=== PATIENT | female | born 1990 | race Caucasian/White ===

== ENCOUNTER 2021-06-19 22:20 | Emergency (ER) | payer SELFPAY ==
[2021-06-19 22:42] VITALS: BP 162/122; PULSE 126; RESP 16; TEMP 37.4; O2SAT 97
[2021-06-19 23:45] LABS: Basophils % 0.4 %; Eosinophils # 0.1 10^3/uL (0.0-0.8); Eosinophils % 0.5 %; Hematocrit 43.7 % (37.0-47.0); Hemoglobin 14.8 g/dL (11.5-15.3); Lymphocytes # 2.9 10^3/uL (0.8-4.8); Lymphocytes % 27.8 %; Mean Corpuscular HGB Conc 33.9 g/dL (30.0-36.0); Mean Corpuscular Hemoglobin 29.1 pg (28.0-34.0); Mean Platelet Volume 10.4 fL (7.4-10.4); Monocytes # 0.8 10^3/uL (0.2-0.9); Monocytes % 7.9 %; Neutrophils # 6.62 10^3/uL (1.8-7.7); Neutrophils % 63.1 %; Nucleated Red Blood Cells % 0 %; Platelet Count 391 10^3/cmm (130-400); Red Blood Count 5.08 10^6/uL (4.1-5.3); Red Cell Distribution Width 11.8 % (12.1-15.1); White Blood Count 10.5 10^3/uL (4.0-10.0)
[2021-06-19 23:55] LABS: HCG, Serum Qual Negative (Negative)
[2021-06-20 00:10] LABS: Procalcitonin 0.02 ng/mL (0-0.5)
[2021-06-20 00:22] LABS: Alanine Aminotransferase 23 U/L (0-33); Albumin Level 4.5 g/dL (3.5-5.2); Alkaline Phosphatase 82 IU/L (35-105); Anion Gap 22.7 (5-19); Aspartate Amino Transferase 18 U/L (0-32); Blood Urea Nitrogen 5 mg/dL (6-20); C Reactive Protein 0.8 mg/L (0.0-4.9); Carbon Dioxide 19 mmol/L (22-29); Chloride 98 mmol/L (98-107); Globulin 3.2 g/dL (1.3-4.6); Glomerular Filtration Rate 83.1 mL/min (90-130); Glucose 112 mg/dL (65-115); Lipase 23 U/L (13-60); Osmolality Calculated 280 mOsm/kg (285-295); Potassium 3.7 mmol/L (3.5-5.1); Sodium 136 mmol/L (136-145); Total Bilirubin 0.4 mg/dL (0.15-1.2); Total Protein 7.7 g/dL (6.6-8.7)
[2021-06-20 00:31] VITALS: BP 190/100; PULSE 100; RESP 18; TEMP 36.8; O2SAT 99
[2021-06-20 00:33] VITALS: O2SAT 99
--- NOTE | 2021-06-20 00:33 | PC.NURSE ---
patient reports increased BP and heart rate, states when heart rate is elevated her chest feels tight. reports history of irritable bowel and has not been taking her medications for reflux and has increased nausea with out emesis. states currently on LMP. states home COVID test negative today but was positive 2 weeks ago. speech clear, sentences complete. tele in place.
--- NOTE | 2021-06-20 00:41 | W.ED.COVID ---
HPI - COVID General: Chief Complaint: COVID symptoms Stated Complaint: covid+, weekness, High B/P Time Seen by Provider: 06/20/21 00:28 Triage information: No fever, cough or shortness of breath. Exposure to COVID + person last 14 days History of Present Illness: Patient is a 31-year-old female who comes to the ED with weakness, nausea and diarrhea. Patient says that approximately 2 weeks ago she started having symptoms of a cold with some nasal congestion and cough. Her main symptom during that time though was diarrhea. She had close to 6-8 episodes of diarrhea daily for the past 2 weeks. She has been trying to stay hydrated drinking water and other fluids but has been nauseous as well. She has not had any episodes of emesis. Today she felt weak and she checked her blood pressure at home and it was elevated. She says her mouth feels dry and she feels like she is dehydrated. She also has some acid reflux because she did not take her omeprazole for a couple. Patient does endorse having a mild headache for the past several days. Patient says she did an at-home Covid test approximately 10 days ago when it was positive. Denies any fever, shortness of breath, weakness or numbness to 1 side of her body, dysuria, hematuria, abdominal pain, emesis. COVID 19 common symptoms: positive non-productive cough, fatigue, headache(s) (mild headache for the past several days), nasal congestion, nausea and diarrhea; negative fever(s), chills, productive cough, dyspnea, throat pain or vomiting COVID 19 other sytmptoms: negative chest pain COVID Results: SARS-CoV-2 Antigen (Rapid) Negative (Negative) 06/20/21 01:25 06/20/21 Review of Systems Const: Reports: fatigue; Denies: fever(s) or chills Eyes: Denies: change in vision or eye discomfort ENMT: Reports: dry mouth and nasal congestion; Denies: throat pain, odynophagia or nasal discharge Card: Denies: chest pain, palpitations, edema, swelling of feet/ankles, dyspnea on exertion or orthopnea Resp: Reports: non-productive cough; Denies: dyspnea or productive cough GI: Reports: nausea, heartburn and diarrhea; Denies: abdominal pain, vomiting, constipation or hematochezia : Denies: flank pain, dysuria or hematuria Musc: Denies: neck pain, back pain or extremity swelling Skin/Breast: Denies: rash or new lesions Neuro: Reports: headache(s) (mild headache for the past several days); Denies: numbness in extremities or weakness in extremities PFSH ED PFSH: Medical History No pertinent family history Surgical History No pertinent past surgical history Physical Exam Const: COMMON NORMALS: patient oriented x3 GENERAL APPEARANCE: cooperative and comfortable HENMT: COMMON NORMALS: normocephalic HEAD & SCALP: normocephalic MOUTH: moist mucous membranes abnormal Details: parched THROAT: posterior oropharynx normal and uvula midline Neck/C-Spine: COMMON NORMALS: supple GENERAL: Yes normal visual inspection Resp: COMMON NORMALS: normal respiratory effort, No retractions, No use of accessory muscles and clear to auscultation bilaterally AUSCULTATION: clear to auscultation bilaterally Cardio: COMMON NORMALS: regular rate, regular rhythm, S1 normal heart sound present, S2 normal heart sound present, No gallops present (Cardio), No clicks present (Cardio), No murmurs present (Cardio) and Peripheral pulses 2+ throughout RATE: regular rate RHYTHM: regular rhythm HEART SOUNDS: S1 normal heart sound present and S2 normal heart sound present PERIPHERAL PULSES: Peripheral pulses 2+ throughout GI: COMMON NORMALS: Normal to inspection, nondistended, normoactive bowel sounds present, Soft to palpation, non-tender and no masses PALPATION: Yes Soft to palpation : COMMON NORMALS: Yes no CVA tenderness BLADDER/KIDNEY EXAM: Yes no CVA tenderness Back/Pelvis: COMMON NORMALS: no CVA tenderness Extremity: COMMON NORMALS: normal to inspection and no pedal edema Neuro: COMMON NORMALS: patient oriented x3 GAIT: Yes Normal gait present Skin: GENERAL SKIN EXAM: dry skin Course Reevaluation(s): Reevaluation #1: After patient started getting IV fluids, Zofran and GI cocktail she says her symptoms have improved. Her vitals are improving as well she had a blood pressure of 158/98 and a pulse of around 96 while I was in the room. She appeared in no acute distress or pain. Time: 03:00 Vital Signs: Vital signs: Vital Signs Temperature 98.2 F 06/20/21 06:50 Pulse Rate 102 H 06/20/21 06:50 Respiratory Rate 18 06/20/21 06:50 Blood Pressure 145/79 06/20/21 06:50 Pulse Oximetry 97 06/20/21 06:50 MDM - COVID Medical Decision Making Patient is a 31-year-old female comes to the ED with weakness, nausea and diarrhea. She states she has been having bad diarrhea for over a week and is concerned that she might be dehydrated. At triage she did have a pulse of 126 and a blood pressure of 162/122 but the rest of her vitals were stable. Exam of patient shows a 31-year-old female in no acute distress or pain. She appears nontoxic. Her oral mucous membranes appear dry. Rest of exam is benign. Labs are unremarkable. Rapid Covid test was negative. Patient was given 1 L of IV fluids, Zofran and a GI cocktail and her symptoms improved. Her vitals improved as well. Patient was diagnosed with viral syndrome and dehydration and discharged home. She has a prescription of Zofran currently at home and I told her to continue using that for nausea. She was told to follow-up with her PCP in 5-7days for reevaluation. Return to ED precautions given. Patient understood and agree with plan. Lab Data I reviewed the patient's lab results. : 06/19/21 23:21 06/19/21 23:21 Laboratory Results WBC 10.5 10^3/uL (4.0-10.0) H 06/19/21 23: RBC 5.08 10^6/uL (4.1-5.3) 06/19/21 23:21 Hgb 14.8 g/dL (11.5-15.3) 06/19/21 23: Hct 43.7 % (37.0-47.0) 06/19/21 23: MCV 86.0 fl (81-99) 06/19/21 23: MCH 29.1 pg (28.0-34.0) 06/19/21 23: MCHC 33.9 g/dL (30.0-36.0) 06/19/21 23: RDW 11.8 % (12.1-15.1) L 06/19/21 23:21 Plt Count 391 10^3/cmm (130-400) 06/19/21 23:21 MPV 10.4 fL (7.4-10.4) 06/19/21 23:21 Neut % (Auto) 63.1 % 06/19/21 23:21 Lymph % (Auto) 27.8 % 06/19/21 23:21 [place] % (Auto) 7.9 % 06/19/21 23:21 Eos % (Auto) 0.5 % 06/19/21 23:21 Baso % (Auto) 0.4 % 06/19/21 23:21 Neut # (Auto) 6.62 10^3/uL (1.8-7.7) 06/19/21 23:21 Lymph # (Auto) 2.9 10^3/uL (0.8-4.8) 06/19/21 23:21 [place] # (Auto) 0.8 10^3/uL (0.2-0.9) 06/19/21 23:21 Eos # (Auto) 0.1 10^3/uL (0.0-0.8) 06/19/21 23:21 Baso # (Auto) 0.0 10^3/uL (0.0-0.1) 06/19/21 23:21 Nucleated RBC % (auto) 0 % 06/19/21 23:21 Nucleated RBCs # 0.0 /100WBC 06/19/21 23:21 Sodium 136 mmol/L (136-145) 06/19/21 23:21 Potassium 3.7 mmol/L (3.5-5.1) 06/19/21 23:21 Chloride 98 mmol/L (98-107) 06/19/21 23:21 Carbon Dioxide 19 mmol/L (22-29) L 06/19/21 23:21 Anion Gap 22.7 (5-19) H 06/19/21 23:21 BUN 5 mg/dL (6-20) L 06/19/21 23:21 Creatinine 0.8 mg/dL (0.5-0.9) 06/19/21 23:21 GFR Calculation 83.1 mL/min (90-130) L 06/19/21 23:21 Glucose 112 mg/dL (65-115) 06/19/21 23:21 Calculated Osmolality 280 mOsm/kg (285-295) L 06/19/21 23:21 Calcium 11.0 mg/dL (8.5-10.5) H 06/19/21 23:21 Total Bilirubin 0.4 mg/dL (0.15-1.2) 06/19/21 23:21 AST 18 U/L (0-32) 06/19/21 23:21 ALT 23 U/L (0-33) 06/19/21 23:21 Alkaline Phosphatase 82 IU/L (35-105) 06/19/21 23:21 C-Reactive Protein 0.8 mg/L (0.0-4.9) 06/19/21 23:21 Total Protein 7.7 g/dL (6.6-8.7) 06/19/21 23:21 Albumin 4.5 g/dL (3.5-5.2) 06/19/21 23:21 Globulin 3.2 g/dL (1.3-4.6) 06/19/21 23:21 Lipase 23 U/L (13-60) 06/19/21 23:21 Procalcitonin 0.02 ng/mL (0-0.5) 06/19/21 23:21 HCG, Qual Negative (Negative) 06/19/21 23:21 Urine Color Yellow (Yellow) 06/20/21 00:20 Urine Appearance Clear (CLEAR) 06/20/21 00:20 Urine pH 6.5 (5-7) 06/20/21 00:20 Ur Specific [place] 1.005 (1.005-1.030) 06/20/21 00:20 Urine Protein Neg (Negative) 06/20/21 00:20 Urine Glucose (UA) Norm (Normal) 06/20/21 00:20 Urine Ketones Negative (Negative) 06/20/21 00:20 Urine Blood 3+ (Negative) H 06/20/21 00:20 Urine Nitrate Negative (Negative) 06/20/21 00:20 Urine Bilirubin Neg (Negative) 06/20/21 00:20 Urine Urobilinogen Norm mg/dL (Negative) 06/20/21 00:20 Ur Leukocyte Esterase Negative (Negative) 06/20/21 00:20 Urine RBC 10-15 /hpf (0-2) H 06/20/21 00:20 Urine WBC 0-4 /hpf (0-5) H 06/20/21 00:20 Ur Squamous Epith Cells 15-25 /hpf (0-5) H 06/20/21 00:20 Amorphous Sediment Not Reportable 06/20/21 00:20 Urine Bacteria 1+ /hpf (NONE) H 06/20/21 00:20 SARS-CoV-2 Ag (Rapid) Negative (Negative) 06/20/21 01:25 SARS-CoV-2 Antigen (Rapid) Negative (Negative) 06/20/21 01:25 06/20/21 Discharge Plan Discharge Patient Disposition: Home Clinical Impression: Viral syndrome, Dehydration determined by examination Condition: Stable Discharge Orders: Discharge ED (Routine); Ordered 06/20/21 Ordered By: Bernardo Meredith Discharge Diet: Regular Discharge Activity: Increase activity as tolerated Patient Instructions: Dehydration (ED), Viral Syndrome (ED) Activity Restrictions/Additional Instructions: Follow-up with medical provider as directed in 5 to 7 days for reevaluation. Continue taking your previously prescribed Zofran as needed for nausea. Also continue taking your previously prescribed acid reflux medication omeprazole. Make sure you drink plenty of fluids and stay hydrated. Return to the ER or your medical provider if condition worsens. Please read and understand discharge instructions. Thank you for choosing [facility] for your healthcare needs today. Please realize this is an emergency room and that we are providing you with a medical screening exam and this may not be complete and all inclusive of all the testing and or work up that you may need to determine your ailment or severity of your illness. It is very important that you follow up as instructed or that you return to the Emergency Department should you have concerns or if your condition changes or worsens in any way. 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
[2021-06-20 00:59] LABS: Add Urine Microscopic? YES; Bilirubin Urine Neg (Negative); Blood Urine 3+ (Negative); Glucose Urine UA Norm (Normal); Ketones Urine Negative (Negative); Leukocyte Esterase Urine Negative (Negative); Nitrate Urine Negative (Negative); Protein Urine Neg (Negative); Specific Gravity, Urine 1.005 (1.005-1.030); Urine Appearance Clear (CLEAR); Urine Color Yellow (Yellow); Urobilinogen Urine Norm (Negative); pH Urine 6.5 (5-7)
[2021-06-20 01:00] LABS: Add Urine Culture? No; Bacteria Urine 1+ /hpf; Squamous Epithelial Cell Urine 15-25 /hpf (0-5); WBC Urine 0-4 /hpf (0-5)
[2021-06-20] MEDS: ondansetron 2 mg/ML SDV 2 mL 4 MG IVP (01:26)
[2021-06-20] MEDS: sodium chloride 0.9% 1,000 ML 999 ML IV ×2 (01:26→05:19)
[2021-06-20] MEDS: lidocaine 2% viscous 15 ML, aluminum-mag hydrox-simethicon 30 ML, sucralfate oral liq 1 GM PO (01:26)
[2021-06-20 02:05] LABS: SARS Covid-2 Antigen Negative (Negative)
--- NOTE | 2021-06-20 04:13 | ECG_ITS ---
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
[2021-06-20 04:25] VITALS: BP 145/86; PULSE 115; RESP 18; TEMP 36.7; O2SAT 99
[2021-06-20] MEDS: LORazepam 2 mg/mL INJ 1 mL 1 MG IVP (04:26)
--- NOTE | 2021-06-20 04:32 | PC.NURSE ---
patient reports feeling jittery in her legs and noted with elevated heart rate at 140's while IVF was infusing. denies having this problem prior to this episode. medicated per order. speech clear warm blanket provided.
[2021-06-20 06:50] VITALS: BP 145/79; PULSE 102; RESP 18; TEMP 36.8; O2SAT 97
== END 2021-06-20 06:54 | disposition home or self-care (01) ==
PROVIDERS: Emergency Medicine; Emergency Provider Physician Assistant
DX: B34.9 Viral infection, unspecified (principal); E86.0 Dehydration; Z20.822 Contact with and (suspected) exposure to COVID-19
CPT/HCPCS: 80053; 81001; 83690; 84145; 84703; 85025; 86140; 87426; 93005; 96361; 96374; 96375; 99284; J2060; J2405; J7030

== ENCOUNTER 2022-12-07 12:41 | Emergency (ER) | payer SELFPAY ==
[2022-12-07 12:43] VITALS: BP 145/88; PULSE 105; RESP 18; TEMP 36.6; O2SAT 97; BMI 36.5
--- NOTE | 2022-12-07 13:12 | XR_ITS ---
WS: [id number] Exam: XR chest 1V portable [id number] Date/Time of Exam: 12/07/2022 1:13 PM Reason For Exam: dyspnea/cough No priors. Findings: The lungs are clear and fully expanded. Costophrenic angles are sharp. No infiltrates. Bronchovascula r relief appears normal. Cardiac silhouette is unremarkable. Bony elements are intact. Multiple artif acts from clothing superimposed chest. XR/XR chest 1V portable [id number] IMPRESSION: Unremarkable chest radiograph.
--- NOTE | 2022-12-07 13:15 | ED_ITS ---
HPI - Nausea/Vomiting/Diarrhea General: Chief complaint: Nausea/Vomiting/Diarrhea Stated complaint: shingles, fever, n/v/d Time Seen by Provider: 12/07/22 12:59 Source: patient Mode of arrival: ambulatory History of Present Illness: 32-year-old female presents emergency room complaining nausea and vomiting low- grade fever at home. 5 days ago she was seen by her primary care doctor and started on Valtrex she had an isolated lesion on the left lateral side of a vesicular rash suspicious for zoster. The vesicles have resolved the rash is not extended. She is a bit of a headache she has not had any neck pain. No further rash. She is not been able to eat or drink much. She generally states she hurts everywhere and is not feeling well. MD elicited complaint: nausea, vomiting and diarrhea Onset (ago): day(s) Associated nausea: Yes Associated abdominal pain: No Exacerbating factors: none Relieving factors: none Associated symtoms: Reports nausea; Denies altered mental status, anxiety, bloating, change in vision, chest pain, cough, diaphoresis, decreased urine output, dizziness, dysuria, epistaxis, fatigue, fecal incontinence, fevers/chills, headache(s), anorexia, malaise, myalgias, numbness, palpitations, rash, short of breath, syncope, tenesmus, tinnitus or weakness Review of Systems Const: Reports: fever(s); Denies: fatigue, malaise or diaphoresis Eyes: Denies: change in vision ENMT: Denies: throat pain, tinnitus or epistaxis Card: Denies: chest pain, palpitations or syncope Resp: Denies: dyspnea, productive cough or non-productive cough GI: Reports: nausea and vomiting; Denies: abdominal pain, diarrhea, bloating or fecal incontinence : Denies: dysuria, urinary frequency or urinary urgency Skin/Breast: Denies: rash or pruritus Neuro: Denies: headache(s) or dizziness Psych: Denies: anxiety PFSH ED PFSH: Medical History No pertinent family history Surgical History No pertinent past surgical history Physical Exam Const: EXAM LIMITATIONS: no altered mental status GENERAL APPEARANCE: cooperative and comfortable ORIENTATION/CONSCIOUSNESS: Yes awake, Yes o riented to person, Yes oriented to place and Yes oriented to time HENMT: COMMON NORMALS: normocephalic, atraumatic, hearing grossly normal bilaterally, external ears normal, EAC's normal, TM's normal bilaterally and Normal nasal mucous membranes and turbinates present HEAD & SCALP: normocephalic and atraumatic NOSE: Normal nasal mucous membranes and turbinates present EXTERNAL EAR: Yes external ears normal EXTERNAL AUDITORY CANAL: EAC's normal TYMPANIC MEMBRANE: TM's normal bilaterally Eye: COMMON NORMALS: Equal, round and reactive pupils present, EOMs intact bilaterally, conjunctivae normal and no scleral icterus CONJUNCTIVA: Yes conjunctivae normal PUPIL: Yes Equal, round and reactive pupils present Neck/C-Spine: COMMON NORMALS: full ROM, no lymphadenopathy, supple and no JVD Lymph: LYMPHATIC: no lymphadenopathy noted and no lymphedema noted Resp: COMMON NORMALS: normal respiratory effort, No retractions, No use of accessory muscles and clear to auscultation bilaterally AUSCULTATION: clear to auscultation bilaterally Cardio: COMMON NORMALS: no JVD, regular rate, regular rhythm and No murmurs present (Cardio) RATE: regular rate RHYTHM: regular rhythm GI: COMMON NORMALS: Soft to palpation and No hepatosplenomegaly present AUSCULTATION: Yes normoactive bowel sounds PALPATION: Yes Soft to palpation, No Tenderness to palpation present (GI), No Guarding due to palpation present ( GI) and Yes No hepatosplenomegaly present Extremity: COMMON NORMALS: normal to inspection, capillary refill normal, no clubbing, cyanosis or edema, no calf tenderness and no pedal edema Neuro: SENSORIUM/ORIENTATION: Yes oriented to person, Yes oriented to place and Yes oriented to time Skin: OTHER: Solitary patch on the left lateral thigh of a healing rash no vesicles at this time. Is mildly reddened no surrounding erythema no induration no drainage Course Vital Signs: Vital signs: Vital Signs Temperature 97.8 F 12/07/22 12:43 Pulse Rate 96 12/07/22 14:38 Respiratory Rate 18 12/07/22 14:38 Blood Pressure 146/87 12/07/22 14:38 Pulse Oximetry 96 12/07/22 14:38 Oxygen Delivery Me thod Room Air 12/07/22 14:38 MDM - Nausea/Vomiting/Diarrhea Medical Decision Making No meningeal signs on exam. Patient improved with fluids. Will discharge home with promethazine use. Clear liquid diet advance as tolerated. She is also complaining of symptoms of a vaginal yeast infection give her single dose of Diflucan. Follow-up with your primary care doctor continue the antiviral she was previously prescribed. Medical Records I reviewed the patient's medical records. Lab Data I reviewed the patient's lab results. 12/07/22 13:10 12/07/22 13:10 Radiology Impressions Chest X-Ray 12/07/22 13:12 IMPRESSION: Unremarkable chest radiograph. Laboratory Results WBC 7.0 10^3/uL (4.0-10.0) 12/07/22 13:10 RBC 5.19 10^6/uL (4.1-5.3) 12/07/22 13:10 Hgb 15.3 g/dL (11.5-15.3) 12/07/22 13:10 Hct 44.8 % (37.0-47.0) 12/07/22 13:10 MCV 86.3 fl (81-99) 12/07/22 13:10 MCH 29.5 pg (28.0-34.0) 12/07/22 13:10 MCHC 34.2 g/dL (30.0-36.0) 12/07/22 13:10 RDW 12.4 % (12.1-15.1) 12/07/22 13:10 Plt Count 252 10^3/cmm (130-400) 12/07/22 13:10 MPV 9.5 fL (7.4-10.4) 12/07/22 13:10 Neut % (Auto) 67.3 % 12/07/22 13:10 Lymph % (Auto) 20.4 % 12/07/22 13:10 [place] % (Auto) 11.9 % 12/07/22 13:10 Eos % (Auto) 0.0 % 12/07/22 13:10 Baso % (Auto) 0.3 % 12/07/22 13:10 Neut # (Auto) 4.67 10^3/uL (1.8-7.7) 12/07/22 13:10 Lymph # (Auto) 1.4 10^3/uL (0.8-4.8) 12/07/22 13:10 [place] # (Auto) 0.8 10^3/uL (0.2-0.9) 12/07/22 13:10 Eos # (Auto) 0.0 10^3/uL (0.0-0.8) 12/07/22 13:10 Baso # (Auto) 0.0 10^3/uL (0.0-0.1) 12/07/22 13:10 Nucleated RBC % (auto) 0 % 12/07/22 13:10 Nucleated RBCs # 0.0 /100WBC 12/07/22 13:10 Sodium 131 mmol/L (136-145) L 12/07/22 13:10 Potassium 3.8 mmol/L (3.5-5.1) 12/07/22 13:10 Chloride 96 mmol/L (98-107) L 12/07/22 13:10 Carbon Dioxide 21 mmol/L (22-29) L 12/07/22 13:10 Anion Gap 17.8 (5-19) 12/07/22 13:10 BUN 6 mg/dL (6-20) 12/07/22 13:10 Creatinine 1.1 mg/dL (0.5-0.9) H 12/07/22 13:10 GFR Calculation 57.2 mL/min (90-130) L 12/07/22 13:10 Glucose 102 mg/dL (65-115) 12/07/22 13:10 Calculated Osmolality 270 mOsm/kg (285-295) L 12/07/22 13:10 Calcium 9.5 mg/dL (8.5-10.5) 12/07/22 13:10 Total Bilirubin 0.3 mg/dL (0.15-1.2) 12/07/22 13:10 AST 17 U/L (0-32) 12/07/22 13:10 ALT 16 U/L (0-33) 12/07/22 13:10 Alkaline Phosphatase 85 U/L (35-105) 12/07/22 13:10 Total Protein 7.7 g/dL (6.6-8.7) 12/07/22 13:10 Albumin 4.0 g/dL (3.5-5.2) 12/07/22 13:10 Globulin 3.7 g/dL (1.3-4.6) 12/07/22 13:10 Urine Color Yellow (Yellow) 12/07/22 14:07 Urine Appearance Clear (CLEAR) 12/07/22 14:07 Urine pH 5 (5-7) 12/07/22 14:07 Ur Specific [place] 1.005 (1.005-1.030) 12/07/22 14:07 Urine Protein Trace (Negative) 12/07/22 14:07 Urine Glucose (UA) Norm (Normal) 12/07/22 14:07 Urine Ketones 2+ (Negative) H 12/07/22 14:07 Urine Blood Neg (Negative) 12/07/22 14:07 Urine Nitrate Negative (Negative) 12/07/22 14:07 Urine Bilirubin Neg (Negative) 12/07/22 14:07 Urine Urobilinogen Norm mg/dL (Negative) 12/07/22 14:07 Ur Leukocyte Esterase Negative (Negative) 12/07/22 14:07 Urine RBC 0-4 /hpf (0-2) H 12/07/22 14:07 Urine WBC 0-4 /hpf (0-5) H 12/07/22 14:07 Ur Squamous Epith Cells 0-4 /hpf (0-5) H 12/07/22 14:07 Amorphous Sediment Not Reportable 12/07/22 14:07 Urine Bacteria Trace /hpf (NONE) 12/07/22 14:07 Urine Mucus Trace /hpf 12/07/22 14:07 Ur Oval Fat Bodies 1+ /hpf 12/07/22 14:07 Discharge Plan Discharge Patient Disposition: Home Clinical Impression: Viral upper respiratory tract infection, Shingles Condition: Stable Prescriptions: New Diflucan 150 mg tablet 150 mg PO DAILY Qty: 1 0RF Rx Instructions: administer on day 1 of therapy promethazine 25 mg tablet 25 mg PO Q6H PRN (Reason: nausea and vomiting) Qty: 20 0RF No Action valacyclovir 1 gram Tablet 1,000 mg PO Q12H Lomotil 2.5-0.025 mg Tablet 1 tab PO TID PRN (Reason: Diarrhea) acetaminophen 500 mg Tablet 500 mg PO Q6H PRN (Reason: Pain) ibuprofen 200 mg Tablet 200 mg PO Q6H PRN (Reason: Pain) Mucinex DM 30-600 mg Tablet Extended Release 12 Hr 1 tab PO Q12H Zofran ODT 4 mg Tablet,Disintegrating 4 mg PO Q8H PRN (Reason: Nausea) PNV 29-1 29 mg iron- 1 mg Tablet 1 tab PO DAILY Discharge Orders: Discharge ED (Routine); Ordered 12/07/22 Ordered By: Peterson Multani Referrals: Carlos Drake MD [Primary Care Provider] - Discharge Diet: Clear Liquid Discharge Activity: Increase activity as tolerated Patient Instructions: Opioid Safety, Pain Management Activity Restrictions/Additional Instructions: You were seen today for persistent nausea vomiting other upper respiratory infection symptoms. Recommend clear liquid diet for 24 to 48 hours use antiemetics as needed and to follow-up with your doctor if not improving. Coding Level of Care Code ED Sample Room Supervisor for Garrett Mrury
[2022-12-07 13:17] VITALS: BP 139/88; O2SAT 94
[2022-12-07 13:22] LABS: Basophils % 0.3 %; Hematocrit 44.8 % (37.0-47.0); Hemoglobin 15.3 g/dL (11.5-15.3); Lymphocytes # 1.4 10^3/uL (0.8-4.8); Lymphocytes % 20.4 %; Mean Corpuscular HGB Conc 34.2 g/dL (30.0-36.0); Mean Corpuscular Hemoglobin 29.5 pg (28.0-34.0); Mean Corpuscular Volume 86.3 fl (81-99); Mean Platelet Volume 9.5 fL (7.4-10.4); Monocytes # 0.8 10^3/uL (0.2-0.9); Monocytes % 11.9 %; Neutrophils # 4.67 10^3/uL (1.8-7.7); Neutrophils % 67.3 %; Nucleated Red Blood Cells % 0 %; Platelet Count 252 10^3/cmm (130-400); Red Blood Count 5.19 10^6/uL (4.1-5.3); Red Cell Distribution Width 12.4 % (12.1-15.1)
[2022-12-07] MEDS: promethazine 25 mg/mL SDV 1 mL IM (13:28)
[2022-12-07] MEDS: sodium chloride 0.9% 1,000 ML 999 ML IV ×2 (13:28→14:02)
[2022-12-07 13:35] LABS: Alanine Aminotransferase 16 U/L (0-33); Alkaline Phosphatase 85 U/L (35-105); Anion Gap 17.8 (5-19); Aspartate Amino Transferase 17 U/L (0-32); Blood Urea Nitrogen 6 mg/dL (6-20); Calcium 9.5 mg/dL (8.5-10.5); Carbon Dioxide 21 mmol/L (22-29); Chloride 96 mmol/L (98-107); Globulin 3.7 g/dL (1.3-4.6); Glomerular Filtration Rate 57.2 mL/min (90-130); Glucose 102 mg/dL (65-115); Osmolality Calculated 270 mOsm/kg (285-295); Potassium 3.8 mmol/L (3.5-5.1); Sodium 131 mmol/L (136-145); Total Bilirubin 0.3 mg/dL (0.15-1.2); Total Protein 7.7 g/dL (6.6-8.7)
[2022-12-07 14:11] VITALS: BP 145/91; BP 154/99; BP 160/90; PULSE 100; RESP 18; O2SAT 97
[2022-12-07 14:38] VITALS: BP 146/87; PULSE 96; RESP 18; O2SAT 96
[2022-12-07 14:55] LABS: Add Urine Microscopic? YES; Bacteria Urine TRACE /hpf; Bilirubin Urine Neg (Negative); Blood Urine Neg (Negative); Glucose Urine UA Norm (Normal); Ketones Urine 2+ (Negative); Leukocyte Esterase Urine Negative (Negative); Nitrate Urine Negative (Negative); Protein Urine Trace (Negative); RBC Urine 0-4 /hpf (0-2); Specific Gravity, Urine 1.005 (1.005-1.030); Squamous Epithelial Cell Urine 0-4 /hpf (0-5); Urine Appearance Clear (CLEAR); Urine Color Yellow (Yellow); Urobilinogen Urine Norm (Negative); WBC Urine 0-4 /hpf (0-5); pH Urine 5 (5-7)
[2022-12-07 14:56] LABS: Add Urine Culture? No; Mucus Urine TRACE /hpf; Oval Fat Bodies Urine 1+ /hpf
== END 2022-12-07 16:06 | disposition home or self-care (01) ==
PROVIDERS: Emergency Provider Family Medicine; PCP Family Medicine
DX: J06.9 Acute upper respiratory infection, unspecified (principal); B02.9 Zoster without complications
CPT/HCPCS: 71045; 80053; 81001; 85025; 96360; 96372; 99284; J2550; J7030